=== PATIENT | female | born 1940 | race African-American/Black ===

== ENCOUNTER → 2017-01-01 | Outpatient (CLI) | payer MEDICARE, BC ==
[~2017-01-01] MED LIST: ASPI-482 PO; IRON1TAB2 PO; LISI1TAB7 PO; MULT-208 PO; VIT1TABL2 PO
[2017-01-01 14:25] LABS: BASO % 0 % (0-3); EOS % 1 % (0-3); HEMATOCRIT 30.5 % (36.0-47.0); HEMOGLOBIN 9.8 g/dL (12.0-15.5); LYMPH # 1.8 x10^3/uL (1.0-4.8); LYMPH % 28 % (24-48); MEAN CORPUSCULAR HEMOGLOBIN 26 pg (25-35); MEAN CORPUSCULAR HGB CONC 32 g/dL (31-37); MEAN CORPUSCULAR VOLUME 81 fL (79-100); MONO % 9 % (0-9); NEUT % 62 % (31-73); PLATELET COUNT 336 x10^3/uL (140-400); RED BLOOD COUNT 3.75 x10^6/uL (3.50-5.40); RED CELL DISTRIBUTION WIDTH 15.6 % (11.5-14.5); WHITE BLOOD COUNT 6.3 x10^3/uL (4.0-11.0)
[2017-01-01 14:35] LABS: INR 1.2 (0.8-1.1); PROTHROMBIN TIME PATIENT 14.3 SEC (11.7-14.0)
[2017-01-01 14:44] LABS: ALBUMIN 3.4 g/dL (3.4-5.0); ALBUMIN/GLOBULIN RATIO 0.8 (1.0-1.7); CREATININE 1.4 mg/dL (0.6-1.0); GFR 44.2; POTASSIUM 4.3 mmol/L (3.5-5.1); TOTAL BILIRUBIN 0.3 mg/dL (0.2-1.0); TOTAL PROTEIN 7.5 g/dL (6.4-8.2)
--- NOTE | 2017-01-01 14:55 | EKG ---
[facility] [address] [place] [address] Test Date: 2017-01-01 Test Time: 15:01:16 Pat Name: FRANSISCO PEREZ Department: Room: Gender: F Human Factors Advisor Lead: : 1940 Requested By: MABEL RAMIREZ Order Number: [id number] Reading MD: Jaquelin Rosario Measurements Intervals [place] Rate: 62 P: 30 ME: 148 QRS: 22 QRSD: 82 T: 5 QT: 434 QTc: 443 Interpretive Statements SINUS RHYTHM NORMAL ECG RI6.01 No previous ECG available for comparison Electronically Signed On 01-04-2017 19:08:41 MERCHANDISE MARKER by Jaquelin Rosario
== END | disposition home or self-care (01) ==
LOC: SURGPAT 13:06
PROVIDERS: ATTEND Neurological Surgery
DX: Z01.812 Encounter for preprocedural laboratory examination (principal)
CPT/HCPCS: 36415; 80053; 85027; 85610; 85730; 87641; 93005

== ENCOUNTER 2017-01-08 05:44 | Inpatient (IN) | payer MEDICARE, BC ==
--- NOTE | 2017-01-06 05:12 | PREOP HP ---
DATE OF SERVICE: 01/08/2017 Date of operation will be 01/08/2017 HISTORY OF PRESENT ILLNESS: The patient is a pleasant 76-year-old who said that recently she has had physical therapy which did help with her posture. Therapy has also helped with her walking to a slight degree. She feels as though she is out of alignment. She says, when she stands, she feels some motion in her back and then feels more crooked and off balance. She says she feels a shifting from a seated to a standing position in her mid-lumbar region. She says she does not feel steady with her walking and feels off balance. PAST MEDICAL HISTORY: Hypertension. PAST SURGICAL HISTORY: LMD at L3-L4, bilateral, 09/2013. FAMILY HISTORY: Diabetes, hypertension, and cancer. SOCIAL HISTORY: She is . She is a nonsmoker. ALLERGIES: None reported. CURRENT MEDICATIONS: Lisinopril/hydrochlorothiazide 20/25 mg tablets once a day. REVIEW OF SYSTEMS: A 12-point review of systems was obtained and is noncontributory except for that mentioned above. NEUROSURGERY EXAMINATION: GENERAL APPEARANCE: Alert, pleasant, in no acute distress. HEAD: Normocephalic and atraumatic. SKIN: Warm and dry. MUSCULOSKELETAL: Lumbar paraspinal muscle bulk is normal, restricted range of motion of the lumbar spine, [id number] tenderness of the lower lumbar spine with palpation, normal range of motion of the lower extremities bilaterally. EXTREMITIES: No clubbing, cyanosis, or edema. NEUROLOGIC: Alert and oriented x 3, normal recent and remote memory. Strength 5/5 in bilateral lower extremities, sensory was intact to light touch in the lower extremities bilaterally, reflexes were present and symmetric in bilateral lower extremities, negative straight leg raising bilaterally, normal gait. IMAGING: Reviewed. I reviewed her lumbar myelogram. On that study, a grade 1 anterolisthesis at L3-L4 is well seen. There is associated severe bilateral foraminal narrowing associated with this. The anterolisthesis has a rotary component that appears exaggerated in flexion during the myelogram. The anterolisthesis at L3-L4 has worsened since the studies done in 2011. PLAN: I feel the problems at L3-L4 are responsible for portion of her difficulties with standing and activities. I feel, when she stands, she rotates anterolisthesis further forward, which throws her off balance and makes her problem worse. I told her I was going to operate and fuse her at this level to see if it would not help her. I discussed surgery with her in detail. She understands. She would like to proceed. We will make the arrangements. MABEL RAMIREZ MD DR: BRENDA/precious JOB#: [id number] / [id number]
[~2017-01-08] VITALS: Ht 167.6 cm; Wt 57.2 kg
[2017-01-08] VITALS (13 sets, daily range): BP systolic 114–166; BP diastolic 52–80
[2017-01-08] MEDS ORDERED: BACITRACIN 50,000 UNIT in IV NORMAL SALINE 1000ML BAG 1,000 ML IRR ONE (06:00)
[2017-01-08] MEDS ORDERED: BACITRACIN IRR ONE (06:00)
[2017-01-08] MEDS ORDERED: CEFAZOLIN 2GM PREMIX 50 ML IV ONE (06:00)
[2017-01-08] MEDS ORDERED: NORMAL SALINE IRR ONE (06:00)
[2017-01-08] MEDS ORDERED: OMEP20CA9 PO (06:34)
[2017-01-08] MEDS ORDERED: IV RINGERS,LACTATED 1000ML 1,000 ML IV SCH (07:00)
[2017-01-08] MEDS ORDERED: FENTANYL PF 100 MCG/2 ML VIAL. IV PRN ×3 (07:00→13:30)
[2017-01-08] MEDS ORDERED: LIDOCAINE 1% 1 ML SYRINGE. ID PRN (07:00)
[2017-01-08] MEDS ORDERED: ONDANSETRON PF 4 MG/2 ML VIAL. IV PRN ×2 (07:00→13:30)
[2017-01-08] MEDS ORDERED: PROCHLORPERAZINE 10 MG/2 ML VIAL. IV PRN (07:00)
[2017-01-08] MEDS ORDERED: HYDROMORPHONE 2 MG/ML VIAL. IV PRN (07:00)
[2017-01-08] MEDS ORDERED: MORPHINE SULFATE 2 MG/ML DISP.SYRIN. IV PRN (07:00)
[2017-01-08] MEDS ORDERED: KETOROLAC 60 MG/2 ML SYRINGE FOR OR. ONE (07:16)
[2017-01-08] MEDS ORDERED: GELATIN SPONGE SIZE 100. ONE (07:16)
[2017-01-08] MEDS ORDERED: THROMBIN 20,000 UNIT SPRAY.SYRN KIT TP ONE (07:16)
[2017-01-08] MEDS ORDERED: BUPIVAC MPF-EPI 0.5%-1:200000 30 ML VIAL. ONE (07:16)
[2017-01-08] MEDS ORDERED: ONDANSETRON PF 4 MG/2 ML VIAL. ONE (08:12)
[2017-01-08] MEDS ORDERED: PROPOFOL 50 ML IV ONE ×3 (08:12→12:28)
[2017-01-08] MEDS ORDERED: DEXAMETHASONE SOD PHOS 20 MG/5 ML VIAL. ONE (08:12)
[2017-01-08] MEDS ORDERED: PROPOFOL 20 ML IV ONE (08:12)
[2017-01-08] MEDS ORDERED: FENTANYL PF 100 MCG/2 ML VIAL. ONE (08:12)
[2017-01-08] MEDS ORDERED: REMIFENTANIL 2 MG VIAL. IV ONE (08:12)
[2017-01-08] MEDS ORDERED: PHENYLEPHRINE 10 MG/ML VIAL. ONE (08:12)
[2017-01-08] MEDS ORDERED: LIDOCAINE 2% 100 MG/5 ML DISP.SYRIN. ONE (08:12)
[2017-01-08] MEDS ORDERED: ROCURONIUM 50 MG/5 ML VIAL. ONE (08:12)
[2017-01-08] MEDS ORDERED: GLYCOPYRROLATE 1 MG/5 ML VIAL. ONE (08:59)
[2017-01-08] MEDS ORDERED: EPHEDRINE PF IN SALINE 50 MG/5 ML DISP.SYRIN. IV ONE (09:21)
[2017-01-08] MEDS ORDERED: NEOSTIGMINE METHYLSULFATE 5 MG/5 ML SYRINGE. ONE (09:26)
[2017-01-08] MEDS ORDERED: ESMOLOL 100 MG/10 ML VIAL. IV ONE (09:46)
--- NOTE | 2017-01-08 10:20 | RAD ---
PQRS Compliance Statement: One or more of the following individualized dose reduction techniques were utilized for this examination: 1. Automated exposure control 2. Adjustment of the mA and/or kV according to patient size 3. Use of iterative reconstruction technique CT of the lumbar spine without contrast, 01/08/2017: History: Lumbar stenosis, brain lab study Noncontrast scans were obtained with multiplanar reconstructions produced. The data was transferred to the operating room to aid in the patient's stereotactically guided surgery. The following findings are delineated: 1. There is a mild right convexity thoracolumbar scoliosis. The lumbar vertebral heights are well-maintained. 2. At L1-2 there are moderate degenerative changes involving the facet joints with posterior ligamentous thickening. No significant posterior disc bulge is evident. The spurring arising from the facet joints is causing considerable left foraminal narrowing and mild right foraminal narrowing at this level. 3. At L2-3 there is mild posterior disc bulging laterally, more so on the right. There are moderate degenerative changes involving the facet joints. The central spinal canal is well-preserved. There is moderate bilateral foraminal encroachment. 4. At L3-4 there are severe hypertrophic degenerative changes involving the facet joints. There is a mild grade 1 spondylolisthesis. There is mild broad-based posterior disc bulging with an apparent lateral disc protrusion on the left. There is moderate associated central spinal stenosis and severe bilateral foraminal encroachment. 5. At L4-5 there is moderate hypertrophic degenerative change involving the facet joints with posterior ligamentous thickening. There is a vacuum disc phenomena with moderate broad-based posterior disc bulging. The combination of findings is causing moderate central spinal stenosis and moderate inferior foraminal narrowing bilaterally. 6. At L5-S1 there are mild degenerative changes involving the facet joints with posterior ligamentous thickening. There is mild posterior disc bulging and marginal spurring. The central canal is not significantly stenotic. There is mild bilateral foraminal narrowing.
[2017-01-08] MEDS ORDERED: DESFLURANE > 120 MINUTES IH ONE (10:32)
[2017-01-08] MEDS ORDERED: 0.9 % SODIUM CHLORIDE 50 ML VIAL. IJ ONE (12:11)
[2017-01-08] MEDS ORDERED: REMIFENTANIL 1 MG VIAL. IV ONE (12:15)
[2017-01-08] MEDS ORDERED: CEFAZOLIN PREMIX 2 GM/50 ML BAG. IV ONE (13:00)
[2017-01-08] MEDS ORDERED: MAG HYDROX/ALUMINUM HYD/SIMETH 30 ML ORAL.SUSP PO PRN (13:30)
[2017-01-08] MEDS ORDERED: MAGNESIUM HYDROXIDE 2,400 MG/30 ML ORAL.SUSP. PO PRN (13:30)
[2017-01-08] MEDS ORDERED: DIPHENHYDRAMINE HCL 25 MG CAPSULE PO PRN (13:30)
[2017-01-08] MEDS ORDERED: 0.9 % SODIUM CHLORIDE 10 ML DISP.SYRIN. IV PRN (13:30)
[2017-01-08] MEDS ORDERED: DIPHENHYDRAMINE 50 MG/ML VIAL IV PRN (13:30)
[2017-01-08] MEDS ORDERED: CALCIUM CARBONATE 500 MG TAB.CHEW PO PRN (13:30)
[2017-01-08] MEDS ORDERED: OXYCODONE/APAP 5/325 TABLET. PO PRN (13:30)
[2017-01-08] MEDS: FENTANYL PF 100 MCG/2 ML VIAL. IV PRN ×4 (14:02→14:29)
[2017-01-08] MEDS: POTASSIUM CL 20MEQ D5-0.45NACL 1,000 ML IV SCH (16:03)
[2017-01-08] MEDS: CEFAZOLIN SODIUM 1 GM in IV NORMAL SALINE 50ML 50 ML IV SCH (16:55)
[2017-01-08] MEDS: OXYCODONE/APAP 5/325 TABLET. PO PRN ×2 (17:36→23:17)
[2017-01-08] MEDS: DOCUSATE SODIUM 100 MG CAPSULE PO SCH (21:00)
[2017-01-08] MEDS: METHOCARBAMOL 750 MG TABLET PO SCH (21:00)
[2017-01-09] MEDS: CEFAZOLIN SODIUM 1 GM in IV NORMAL SALINE 50ML 50 ML IV SCH ×2 (01:34→07:53)
[2017-01-09 03:00] VITALS: BP 132/61
[2017-01-09] MEDS: ACETAMINOPHEN 325 MG TABLET. PO PRN ×2 (03:21→11:34)
[2017-01-09] MEDS: POTASSIUM CL 20MEQ D5-0.45NACL 1,000 ML IV SCH (05:20)
[2017-01-09 06:18] VITALS: BP 122/57
[2017-01-09] MEDS ORDERED: PANTOPRAZOLE 40 MG TABLET. PO SCH (07:30)
[2017-01-09] MEDS: DOCUSATE SODIUM 100 MG CAPSULE PO SCH (07:52)
[2017-01-09] MEDS: METHOCARBAMOL 750 MG TABLET PO SCH ×2 (07:55→13:39)
[2017-01-09] MEDS ORDERED: LISINOPRIL 20 MG TABLET PO SCH (09:00)
[2017-01-09] MEDS ORDERED: NON FORMULARY ITEM (Lisinopril/Hydrochlorothiazide (Lisinopril-Hctz 20-25 Mg Tab) 1 TAB) PO SCH (09:00)
[2017-01-09] MEDS ORDERED: HYDROCHLOROTHIAZIDE 25 MG TABLET PO SCH (09:00)
[2017-01-09 11:17] VITALS: BP 149/65
[2017-01-09] MEDS ORDERED: HYDR-2762 PO (12:54)
[2017-01-09] MEDS ORDERED: METH-38 PO (12:55)
--- NOTE | 2017-01-09 13:01 | DISCH ---
DISCHARGE INSTRUCTIONS Condition on Discharge Condition on Discharge: Stable Activity After Discharge Activity Instructions for Disc: Activity as tolerated, Avoid exertion Bathing Instructions: Shower-keep dressing dry Lifting Instructions after Dis: No heavy lifting, No pulling or pushing, Do not lift >10 pounds Driving Instructions after Dis: No driving for 2 weeks Diet after Discharge Additional Diet Restrictions: resume home diet Wound Incision Care Wound/Incision Care: Ice to area for comfort Other wound/incision instructi: may remove dressing when dry then may shower- no soaking Contacting the DR. after DC Call your doctor for: Concerns you may have Treatment/Equipment after DC Adaptive Equipment Issued: JAMES Riddle APRN Jan 09, 2017 13:01
[2017-01-09 14:37] VITALS: BP 144/68
--- NOTE | 2017-01-09 17:37 | PATHOLOGY ---
PATHOLOGY REPORT * * * * * * * * FINAL DIAGNOSIS: Segments of fibrocartilaginous and fibroadipose tissue and bone, lumbar decompression: - Degenerative changes of fibrocartilaginous tissue. COMMENT: There is no evidence of an acute inflammatory process or malignancy. (JPM:csd; d/t: 01/09/2017) REPORT ELECTRONICALLY SIGNED BY: Paul Gonzalez M.D. DATE/TIME: 01/09/2017 17:36 * * * * * * * * GROSS PATHOLOGY: Received in formalin labeled "Fransisco Orellana, lumbar decompression" are multiple segments of mello, rubbery, and gritty tissue admixed with bone. The specimen measures 3.5 x 3.2 x 0.9 cm in aggregate dimensions. The tissue is submitted representatively in cassette A1, following decalcification. (CAA; 01/08/2017) INITIAL CPT CODE(S): A; 97653, 68824 Professional services performed [place] [address] Technical services performed by [facility] at [address] [place] [address]. SPECIMEN(S) RECEIVED: A.Lumbar decompression CLINICAL HISTORY: Spondylolisthesis PATIENT: FRANSISCO PEREZ /AGE: 12 1940 (Age: 76) PATIENT #: [id number] ALT CASE #: SPECIMEN COLLECTION DATE: 01/08/2017 SPECIMEN RECEIVED DATE: 01/08/2017 [facility] - [address] [place] [address] - PHONE: [phone] * * * END OF REPORT * * *
--- NOTE | 2017-01-13 23:19 | OP ---
DATE OF SURGERY: 01/08/2017 PREOPERATIVE DIAGNOSES: Grade 1 anterolisthesis at L3-L4 with rotatory subluxation and motion on flexion and extension images. POSTOPERATIVE DIAGNOSES: Grade 1 anterolisthesis at L3-L4 with rotatory subluxation and motion on flexion and extension images. OPERATION PERFORMED: Posterior lumbar instrumentation at L3, L4, L5; posterolateral fusion at L3, L4, L5 with allograft bone. SURGEON: Damaso Ramirez M.D. RESOURCE SPECIALIST: Fab Chapin MD, assisted with the surgery, assisted with the exposure, the instrumentation as well as the closure. The operation was done with BrainLAB guidance, fluoroscopy, bone marrow aspirate. OPERATIVE INDICATIONS: The patient is a very pleasant 76-year-old woman who has developed problems with spondylolisthesis at L3-L4, there was a rotatory component. She finds that when she stands, she will end up being off balance and having difficulty with her ability to ambulate. On imaging studies, there was motion at L3-L4 along with a grade 1 spondylolisthesis when she was in a supine position. I recommended an instrumented lumbar fusion. She did not have significant pain and my initial plan was to instrument L3-L4 alone. She understood the surgery and the risks, she understood the technique of the operation and she wished to go ahead. DESCRIPTION OF PROCEDURE: Following general endotracheal anesthesia, the patient was positioned prone on the Palmer table. Her lumbar region was then prepped and draped in standard fashion. DAVONTE hose and AV impulse boots were applied for DVT prophylaxis. A microscope was draped. Fluoroscopy was draped and brought into the field. Monitoring was established. Ancef 2 g was given less than 1 hour prior to initiation of the surgery. Iliac posts were placed into the right iliac crest and the BrainLAB system was initialized. I then made a midline incision extending from superior L3 to inferior L4, dissected down through the skin and subcutaneous tissue, reflected the paraspinal muscles and placed a self-retaining retractor. I exposed the lateral facets and the transverse processes and using the NuVasive system, I cannulated the pedicles of L3 and L4 bilaterally in the following fashion using standard landmarks post the BrainLAB system, I drilled into the posterior aspect of the pedicle, I passed the black ball with stimulated EMG monitoring followed by tap, followed by screw placement. During this time, I did excoriate the lateral facet joints and transverse processes. I also placed a Jamshidi needle into the left iliac crest using BrainLAB guidance and aspirated 20 mL of bone marrow to place with the allograft bone. I packed allograft bone into each lateral gutter. I placed 6.5 screws into L3 and L4 and I found that I was unable to obtain satisfactory reduction with a single level screw construct in this patient. I therefore, extended the incision slightly further inferiorly to L5, placed a self-retaining retractor inferiorly and exposed the L5 lamina and transverse process and at this point, then cannulated the pedicles of L5 bilaterally without difficulty, again using 6.5 screws. I did during this time, excoriated the lateral facet and transverse process and augment the allograft bone inferiorly to accomplish L5. I had bone from L3-L5 in each lateral gutter. I then placed curved rods and using reduction screws at L3, was able to help reduce and realign the spine at L3. I torqued the construct sequentially and at this point, in this patient, I felt that she was satisfactorily realigned with improved lordosis, decreased in the rotatory subluxation and overall anterolisthesis. I irrigated copiously with antibiotic solution at this point, I closed the wound in layers with absorbable suture and the skin was closed with 4-0 subcuticular stitch. The operation went very well and the patient was taken to recovery room uneventfully in excellent condition. I was quite pleased with the surgery. DAMASO RAMIREZ MD DR: BRENDA/precious JOB#: [id number] / [id number] KVNG
--- NOTE | 2017-01-16 22:42 | DS ---
DATE OF DISCHARGE: 01/09/2017 Cheli Moore APRN dictating a discharge summary for Dr. Damaso Ramirez. DISCHARGE DIAGNOSES: Grade 1 anterolisthesis at L3-L4 with rotatory subluxation and motion on flexion and extension images. OPERATION PERFORMED: Posterior lumbar instrumentation at L3, L4, L5 and posterolateral fusion L3, L4, L5. HISTORY OF PRESENT ILLNESS: The patient is a pleasant 76-year-old woman who has developed problems with spondylolisthesis at L3-L4, there was a rotatory component. She found that when she would stand, she would end up being off balance and having difficulty with her ability to ambulate. On imaging studies, there was motion at L3-L4 along with a grade 1 spondylolisthesis when she was in supine position. I recommended an instrumented lumbar fusion. She understood the surgery and the risks and wished to proceed. HOSPITAL COURSE: She was admitted to the floor postoperatively where she did well. She was up ambulating in the room and in the halls. Physical therapy was initiated and instruction was given to her regarding her activities. Her pain is well controlled and she is in good condition to discharge home. DISCHARGE MEDICATIONS: She will resume her medications per the MRAD. DISCHARGE INSTRUCTIONS: She was instructed regarding incision care, activity restrictions and expectations for the next several weeks. She will follow up in our office in 2 weeks. She understands to call with any questions or concerns. DAMASO RAMIREZ MD DR: GIANNA/precious JOB#: [id number] / [id number] [facility]
== END 2017-01-09 17:15 | disposition home or self-care (01) | DRG 460 ==
LOC: OPSVCIP 05:44 → 4 SOUTHEST 15:12
PROVIDERS: ADMIT Neurological Surgery; ATTEND Neurological Surgery
PROC: 0SG107J Fusion of 2 or more Lumbar Vertebral Joints with Autologous Tissue Substitute, Posterior Approach, Anterior Column, Open Approach (ICD-10-PCS; 2017-01-08)
PROC: 0SG10AJ Fusion of 2 or more Lumbar Vertebral Joints with Interbody Fusion Device, Posterior Approach, Anterior Column, Open Approach (ICD-10-PCS; principal; 2017-01-08 08:30)
DX: M43.16 Spondylolisthesis, lumbar region (principal); I10 Essential (primary) hypertension; Z82.49 Family history of ischemic heart disease and other diseases of the circulatory system; Z83.3 Family history of diabetes mellitus
CPT/HCPCS: 36415; 72131; 76000; 86850; 86900; 86901; 88304; 88311; C1713; J0690; J1100; J1170; J1885; J2405; J2704; J2710; J3010; J3490; J7030; J7120; 97110; 97116; 97530

== ENCOUNTER → 2017-06-17 | Day surgery (SDC) | payer MEDICARE, BC ==
[~2017-06-17] MED LIST changes: +HYDR-2762 PO; +HYDROmorphone 2 MG/ML VIAL IV PRN; +IV RINGERS,LACTATED 1000ML 1,000 ML IV SCH; +LIDOCAINE 1% 1 ML SYRINGE. ID PRN; +METH-38 PO; +MORPHINE SULFATE 2 MG/ML DISP.SYRIN. IV PRN; +OMEP20CA9 PO; +ONDANSETRON PF 4 MG/2 ML VIAL. IV PRN; +PROCHLORPERAZINE 10 MG/2 ML VIAL. IV PRN; +PROPOFOL 20 ML IV ONE; +fentaNYL PF VIAL 100 MCG/2 ML VIAL IV PRN
--- NOTE | 2017-06-17 10:04 | PDOC1 ---
HISTORY & PHYSICAL H&P Talib Quintanilla [id number] 1940 05/28/2017 01:30 PM 11/10 [place] [facility] PATIENTS [facility] [address] [place] [id number] Ph. [phone] Patient: Talib Quintanilla Date of : 1940 Date: 05/28/2017 1:30 PM Visit Type: Office Visit This 76 year old female presents for Anemia and GERD. History of Present Illness: 1. Anemia Type of anemia was acquired for deficiency anemia (iron deficient). Pertinent negatives include abdominal pain, black tarry stools, bleeding gums, constipation, diarrhea, nausea, vomiting and weight loss. Additional information: Has anemia and has been seen by corporate specialist. Never had colonoscopy. 2. GERD The patient reports heartburn. Context: treatment with PPIs. Denies aggravating factors. Denies relieving factors. Pertinent negatives include aspiration, awakens w/ choking or heartburn, chronic cough, dental erosions, dysphagia, melena, nausea, reflux, sore throat, vomiting and weight loss. Additional information: Has issue for a while. Has been on Omeprazole as needed. INTAKE COMMENTS: Intake Comments: Nurse Note: the pt is here today to schedule a colonoscopy and EGD due to anemia, the pt is currently seeing Dr. Montalvo for the anemia but he is requesting a Colonoscopy and EGD. PROBLEM LIST: Problem Description Onset Date Type 2 diabetes mellitus well controlled 02/25/2012 Spinal stenosis in cervical region 02/25/2012 Benign essential hypertension 08/28/2009 Acute renal failure syndrome 08/28/2009 Weight loss 06/10/2016 Anemia 03/12/2011 Hyperlipidemia 03/12/2011 Abnormal glucose level 03/12/2011 Idiopathic scoliosis AND/OR kyphoscoliosis 03/12/2011 PAST MEDICAL/SURGICAL HISTORY (Detailed) Disease/disorder Onset Date Management Date Comments Cholecystectomy Hysterectomy 1995 01/2017 Abnormal Glucose NEC Anemia Anemia NOS disc problems disc surgery cervical Hyperlipidemia NEC/NOS Hypertension lumbar surgery 2012 Malaise And Fatigue NEC Osteoporosis NOS Scoliosis deformity of spine Medications (Active): Started Medication Directions Instruction Stopped 05/19/2012 aspirin 81 mg Tab, Delayed Release take 1 tablet (81MG) by ORAL route every day 05/19/2012 Caltrate-600 Plus Vitamin D3 600 mg-400 unit Tab 1 po bid 06/10/2016 iron 325 mg (65 mg iron) tablet take 1 tablet (325MG) by oral route 3 times every day 04/24/2017 lisinopril 20 mg-hydrochlorothiazide 25 mg tablet TAKE [1] TABLET BY MOUTH ONCE DAILY Vitamin B-12 1,000 mcg Sublingual Tab Vitamin C 1,000 mg Tab Allergies: Ingredient Reaction Medication Name Comment NO KNOWN DRUG ALLERGIES REVIEW OF SYSTEMS System Neg/Pos Details Constitutional Negative Chills, fever, malaise and weight loss. ENMT Negative Bleeding gums, dental erosions and sore throat. Eyes Negative Double vision. Respiratory Negative Aspiration, chronic cough, dyspnea and wheezing. Cardio Negative Chest pain and irregular heartbeat/palpitations. GI Positive See HPI. GI Negative Abdominal pain, awakenings with choking or heartburn, black tarry stools, constipation, diarrhea, dysphagia, melena, nausea, see HPI, reflux and vomiting. Negative Dysuria and hematuria. Endocrine Negative Cold intolerance and heat intolerance. Psych Negative Anxiety. Integumentary Negative Hives and rash. MS Negative Joint pain. Michele/Lymph Negative Easy bleeding and easy bruising. Allergic/Immuno Negative Food allergies. VITAL SIGNS Time BP mm/Hg Pulse /min Resp /min Temp F Ht ft Ht in Ht cm Wt lb Wt kg BMI kg/ m2 BSA m2 O2 Sat% 2:17 PM 128/74 104 98.3 5.0 6.00 167.64 125.20 56.790 20.21 99 Time Measured by 2:17 PM Aggie Hickey PHYSICAL EXAM: Exam Findings Details Constitutional Normal Well developed. Eyes Normal Conjunctiva - Right: Normal, Left: Normal. Sclera - Right: Normal, Left: Normal. Nasopharynx Normal Lips/teeth/gums - Normal. Neck Exam Normal Inspection - Normal. Thyroid gland - Normal. Respiratory Normal Inspection - Normal. Auscultation - Normal. Cardiovascular Normal Regular rate and rhythm. No murmurs, gallops, or rubs. Vascular Normal Pulses - Carotids: Normal, Femoral: Normal, Dorsalis pedis: Normal. Abdomen Normal Inspection - Normal. Anterior palpation - No guarding. No abdominal tenderness. No hepatic enlargement. No splenic enlargement. No hernia. No Ascites. Skin Normal Inspection - Normal. Extremity Normal No edema. Psychiatric Normal Oriented to time, place, person, and situation. Appropriate mood and effect. # Detail Type Description 1. Assessment Iron deficiency anemia due to chronic blood loss (D50.0). Patient Plan schedule colonoscopy at Plan Orders Further diagnostic evaluations ordered today include(s) Colonoscopy to be performed today. 2. Assessment GERD without esophagitis (K21.9). Patient Plan schedule EGD at Plan Orders Further diagnostic evaluations ordered today include(s) EGD to be performed today. She is to schedule a follow-up visit with Roby Seymour MD upon completion of work-up Electronically signed by: Roby Seymour MD 05/28/2017 05:01 PM Document generated by: Roby Seymour 05/28/2017 05:01 PM Miranda Conn MD, Family Practice; Jerald Biggs MD Internal Medicine; Jayme Lazar MD, Internal Medicine; Julianne Seymour MD Internal Medicine; Roby Seymour MD, Gastroenterology; Fernando Devine MD, Rheumatology, S. Colby Guevara, Physical Medicine/Rehab JMerary Hurd APRN ------ 06/17/17 Patient seen and examined. no change in H&P ROBY SEYMOUR MD Jun 17, 2017 10:04
[2017-06-17 11:38] VITALS: BP 116/56
== END | disposition home or self-care (01) ==
LOC: ENDOS 09:23
PROVIDERS: ATTEND Internal Medicine Gastroenterology
DX: D50.0 Iron deficiency anemia secondary to blood loss (chronic) (principal); K21.0 Gastro-esophageal reflux disease with esophagitis; E78.00 Pure hypercholesterolemia, unspecified; I10 Essential (primary) hypertension; M19.90 Unspecified osteoarthritis, unspecified site; D64.9 Anemia, unspecified; Z90.49 Acquired absence of other specified parts of digestive tract; Z90.710 Acquired absence of both cervix and uterus; Z87.39 Personal history of other diseases of the musculoskeletal system and connective tissue; Z82.49 Family history of ischemic heart disease and other diseases of the circulatory system; Z86.39 Personal history of other endocrine, nutritional and metabolic disease; Z86.69 Personal history of other diseases of the nervous system and sense organs; Z83.3 Family history of diabetes mellitus
CPT/HCPCS: 43235; 45378; J2704

== ENCOUNTER 2020-01-01 10:15 | Emergency (ER) | payer MEDICARE, BC ==
[~2020-01-01] VITALS: Ht 167.6 cm; Wt 56.8 kg
[~2020-01-01 10:15] MED LIST changes: -HYDR-2762 PO; +HYDR-2765 PO; -HYDROmorphone 2 MG/ML VIAL IV PRN; -IV RINGERS,LACTATED 1000ML 1,000 ML IV SCH; -LIDOCAINE 1% 1 ML SYRINGE. ID PRN; +LISI1TAB20 PO; -LISI1TAB7 PO; -MORPHINE SULFATE 2 MG/ML DISP.SYRIN. IV PRN; +OMEP20CA16 PO; -OMEP20CA9 PO; -ONDANSETRON PF 4 MG/2 ML VIAL. IV PRN; -PROCHLORPERAZINE 10 MG/2 ML VIAL. IV PRN; -PROPOFOL 20 ML IV ONE; -fentaNYL PF VIAL 100 MCG/2 ML VIAL IV PRN
[2020-01-01 10:21] VITALS: BP 182/74
[2020-01-01] MEDS ORDERED: CYCL10TA2 PO (11:00)
[2020-01-01] MEDS ORDERED: DICL100G18 TP (11:00)
[2020-01-01] MEDS ORDERED: METH4TAB2 PO (11:00)
--- NOTE | 2020-01-01 11:00 | PHYS DOC ---
Past Medical History Past Medical History: Hypertension Past Surgical History: Hysterectomy, Other Additional Past Surgical Histo: BACK SURGERY, Smoking Status: Never Smoker Alcohol Use: None Adult General Chief Complaint Chief Complaint: Neck Pain HPI HPI Patient is a 79 year old female who presents to the ED today complaining of 5 out of 10 left lateral neck pain, patient reports neck pain is been going on for weeks. Patient states she has history of chronic neck problems, she had cervical fusion done years ago. Patient denies any known injury. Denies any pain radiating to the left upper extremity. Denies any chest pain or shortness of breath. Reports most of her pain is on range of motion. Describes the pain as throbbing and intermittent. She states most of the time she is able to do her daily activities with no interference from the neck pain. Review of Systems Review of Systems Constitutional: Denies fever or chills [] Eyes: Denies change in visual acuity, redness, or eye pain [] HENT: Denies nasal congestion or sore throat [] Respiratory: Denies cough or shortness of breath [] Cardiovascular: No additional information not addressed in HPI [] GI: Denies abdominal pain, nausea, vomiting, bloody stools or diarrhea [] : Denies dysuria or hematuria [] Musculoskeletal: Reports left lateral neck pain Integument: Denies rash or skin lesions [] Neurologic: Denies headache, focal weakness or sensory changes [] All other systems were reviewed and found to be within normal limits, except as documented in this note. Allergies Allergies Allergies Coded Allergies Type Severity Reaction Last Updated Verified No Known Drug Allergies 08/24/18 No Physical Exam Physical Exam Constitutional: Well developed, well nourished, no acute distress, non-toxic appearance. [] HENT: Normocephalic, atraumatic, bilateral external ears normal, oropharynx moist, no oral exudates, nose normal. [] Eyes: PERRLA, EOMI, conjunctiva normal, no discharge. [] Neck: Normal range of motion, no tenderness, supple, no stridor. [] Cardiovascular:Heart rate regular rhythm, no murmur [] Lungs & Thorax: Bilateral breath sounds clear to auscultation [] Abdomen: Bowel sounds normal, soft, no tenderness, no masses, no pulsatile masses. [] Skin: Warm, dry, no erythema, no rash. [] Back: No tenderness, no CVA tenderness. [] Extremities: No tenderness, no cyanosis, no clubbing, ROM intact, no edema. [] Neurologic: Alert and oriented X 3, normal motor function, normal sensory function, no focal deficits noted. [] Psychologic: Affect normal, judgement normal, mood normal. [] Current Patient Data Vital Signs Vital Signs Date Time Temp Pulse Resp B/P (MAP) Pulse Ox O2 Delivery O2 Flow Rate FiO2 01/01/20 10:21 98.4 98 16 182/74 (110) 98 Room Air 98.4 EKG EKG [] Radiology/Procedures Radiology/Procedures [] Course & Med Decision Making Course & Med Decision Making Pertinent Labs and Imaging studies reviewed. (See chart for details) This is a 79-year-old female patient presented to the ED today with left lateral neck pain. Patient reports the pain is chronic. Denies any known injury. Will be discharged with Medrol Dosepak, cyclobenzaprine and Voltaren cream. Follow-up with primary care doctor in one week, she also has a neurosurgeon, recommended she follows up next week. Dragon Disclaimer Dragon Disclaimer This electronic medical record was generated, in whole or in part, using a voice recognition dictation system. Departure Departure Impression: Primary Impression: Neck pain on left side Disposition: 01 HOME, SELF-CARE Condition: STABLE Referrals: DALE FELIZ MD (PCP) follow up next week MABEL RAMIREZ MD follow up next week Patient Instructions: Musculoskeletal Pain Additional Instructions: You were seen for neck pain. Take the prescribed medications as ordered. Follow- up with your neurosurgeon as well as primary care doctor next week. Scripts Diclofenac Sodium (VOLTAREN) 100 Gm Gel..gram. 1 GM TP QID for pain for 30 Days, #1 EACH 0 Refills apply to affected area(s) Prov: MUTUNGABIANKA CLOTH SHRINKING MACHINE OPERATOR HELPER 01/01/20 Cyclobenzaprine Hcl (CYCLOBENZAPRINE HCL) 10 Mg Tablet 1 TAB PO TID, #30 TAB Prov: MUTUNGA,BIANKA CLOTH SHRINKING MACHINE OPERATOR HELPER 01/01/20 Methylprednisolone (MEDROL) 4 Mg Tab.ds.pk 1 PKG PO UD, #1 PKG Prov: MUTUNGA,BIANAK CLOTH SHRINKING MACHINE OPERATOR HELPER 01/01/20 MUTUNGA,BIANKA CLOTH SHRINKING MACHINE OPERATOR HELPER Jan 01, 2020 11:00
== END 2020-01-01 11:23 | disposition home or self-care (01) ==
LOC: ER 10:15
DX: M54.2 Cervicalgia (principal); I10 Essential (primary) hypertension; Z98.1 Arthrodesis status
CPT/HCPCS: 99283